=== PATIENT | female | born 1975 | race Caucasian/White ===

== ENCOUNTER 2024-10-18 00:36 | Emergency (ER) | payer OTHER, SELFPAY ==
[2024-10-18 00:40] VITALS: BP 128/82
[2024-10-18 00:54] VITALS: BMI 47.4
[2024-10-18 01:02] VITALS: BP 129/56
[2024-10-18] MEDS: DELTASONE 50 MG PO (01:05)
--- NOTE | 2024-10-18 01:09 | EDRN ---
Pt had beef loin for dinner. About 2 hours ago, pt noted swelling in upper lip. Pt took 50mg benadryl PO about 1 hour ago. Pt notes improvement of swelling in upper lip 'it doesn't feel as tight.' Pt denies difficulty swallowing, throat swelling.
Pt handling oral secretions, no difficulty taking PO medications. Pt denies itching, cp, sob, n/v, abd pain. No hx similar symptom. No change in medications, detergent/soap/lotion. Pt aware will be monitored for approximately 1 hour, instructed
to call if she has any change in symptoms.
--- NOTE | 2024-10-18 01:14 | ED.GENMED ---
History of Present Illness
General
Chief Complaint: Swelling
Source: patient
Exam Limitations: none
Time Seen by Provider: 10/18/24 00:53
Nursing documentation reviewed up to this point in time: agreed with
History of Present Illness
History of Present Illness:
Patient presents to ED secondary to sudden onset of upper lip swelling, an approximately 2 hours prior to arrival, shortly after having her dinner. Denies shortness of breath. Denies fever. Denies dizziness. Denies difficulty swallowing. Denies
rash. Denies previous history of similar symptoms, as she has had hives secondary to certain antibiotics only in the past. Denies recent change in medications or diet.
Past History
Past History
ED Past Medical History: HTN
ED Past Surgical History: None
Social History
Tobacco: Non-smoker
Alcohol: Occasional
Personal:
Living: with family
Review of Systems
Review of Systems
Allergies reviewed?: Yes
All Other Systems: ROS reviewed and negative except as documented in HPI and ROS
Constitutional: Reports no symptoms
EENT: Reports no symptoms
Respiratory: Reports no symptoms; Denies trouble breathing
Cardiac: Reports no symptoms
ABD/GI: Reports no symptoms
Musculoskeletal: Reports no symptoms
Skin: Reports other (Lip swelling)
Neurological: Reports no symptoms
Phy Exam
Physical Exam
Physical Exam:
Physical Exam
General: mild distress, not acutely ill. afebrile
Head: nc/at. eomi
Neck: supple. normal range of motion. normal pharynx. normal uvula. normal tongue
Heart: s1/s2 regular rate and rhythm
Lungs: no acute respiratory distress. clear bilaterally
Abdomen: normal bowel sounds. not tender.
Neuro: alert and oriented x 3. no focal neurological deficits
Skin: no rash
Psychiatric: well kept. interactive and cooperative
Extremities: no edema. no calf tenderness.
Scores
Heart Failure Risk
Heart Failure Risk Score: Not Applicable
Course
Orders/Labs/Results
Orders:
Orders
10/18/24 01:00
Prednisone [Deltasone] 50 mg PO NOW STA
Vital Signs
Initial and Last Documented VS:
Initial Vital Signs
Temp Pulse Resp BP Pulse Ox
99.1 F 78 16 128/82 94
10/18/24 00:40 10/18/24 00:40 10/18/24 00:40 10/18/24 00:40 10/18/24 00:40
Last Documented Vital Signs
Temp Pulse Resp BP Pulse Ox
99.1 F 77 14 120/51 94
10/18/24 00:40 10/18/24 02:44 10/18/24 02:44 10/18/24 02:44 10/18/24 02:44
MDM/Problems Addressed
MDM/Problems Addressed:
Patient observed in ED for over 2 hours, without any worsening symptoms. History and exam concerning for angioedema, likely secondary to use of lisinopril at home. As such, patient will be advised to discontinue lisinopril immediately and
follow-up with PCP for reevaluation next week, including consideration for potentially adding different antihypertensive agent. Patient otherwise is afebrile, hemodynamically stable, and without any respiratory distress, at time of discharge, to
the care of her family.
*Pulse Oximetry
SaO2: 95
Oxygen Mode of Delivery: Room air
Patient hypoxic: no
*Critical Care Note
Total Time (30-74mins, 75-104mins- exclusive of procedures): Not Applicable
ED Attending Note
-
Portions of this chart may have been created with voice recognition software.� Occasional wrong word or��sound alike� substitutions may have occurred due to the inherent limitations of voice recognition software.
Discharge Plan
Departure
Patient Disposition: Home (Routine Discharge)
Date of Disposition: 10/18/24
Time of Disposition: 02:36
Patient with high blood pressure during this ER visit?: Yes
Condition: Good
Discharge Problem:
Angioedema
Instructions: Angioedema
Prescriptions:
No Action
fluoxetine 40 mg Capsule
40 mg PO DAILY
atorvastatin 20 mg Tablet
20 mg PO DAILY
insulin glargine [Lantus U-100 Insulin] 100 unit/mL Solution
36 unit SC QPM
lisinopril 20 mg Tablet
20 mg PO DAILY
atenolol 25 mg Tablet
25 mg PO QPM
ferrous sulfate 325 mg (65 mg iron) Tablet
325 mg PO DAILY
levothyroxine 125 mcg Tablet
125 mcg PO DAILY
cholecalciferol (vitamin D3) [Vitamin D3] 50 mcg (2,000 unit) Tablet
50 mcg PO DAILY
Ozempic 2 mg/dose (8 mg/3 mL) Pen Injector
2 mg SC QWEEK
levocetirizine [Xyzal] 5 mg Tablet
5 mg PO QPM PRN (Reason: allergies)
Referrals:
Ana Lilia Wiley CRNP [Family Provider]
Activity Restrictions/Additional Instructions:
As discussed, please follow-up with your primary care doctor for evaluation next week. In the meantime, recommend discontinuation of lisinopril immediately, as the medication may have contributed to your presenting symptoms today.
Interventions
Interventions:
*Risk Screen - Suicide Last Done: 10/18/24 00:40
*General Assessment Last Done: 10/18/24 00:40
*Neglect/Abuse Screening Last Done: 10/18/24 00:40
*ED- Fall Risk Assessment Last Done: 10/18/24 00:59
*Nursing Disposition Last Done: 10/18/24 02:47
ED- Cardiac Assessment Last Done: 10/18/24 01:08
ED- Pulmonary Assessment Last Done: 10/18/24 01:08
ED-Skin Assessment Last Done: 10/18/24 01:08
Discharge Date and Time
Discharge Date/Time: 10/18/24 02:47
Print Language: LAO
--- NOTE | 2024-10-18 01:46 | EDRN ---
No change in pt condition. Per Dr Lawler, will observe pt approximately 1 more hour and if no change, discharge home.
[2024-10-18 02:44] VITALS: BP 120/51
== END 2024-10-18 02:47 | disposition home or self-care (01) ==
LOC: EMR 00:36
PROVIDERS: EMERGENCY PHYSICIAN Emergency Medicine; FAMILY PHYSICIAN Nurse Practitioner Family
DX: T78.3XXA Angioneurotic edema, initial encounter (principal); I10 Essential (primary) hypertension; X58.XXXA Exposure to other specified factors, initial encounter
CPT/HCPCS: 99283